=== PATIENT | male | born 1950 | race Two or more races ===

== ENCOUNTER 2018-11-22 03:35 | Emergency (ER) | payer OTHER, MEDICAID ==
[~2018-11-22] VITALS: Ht 162.6 cm; Wt 79.4 kg
[2018-11-22 04:06] LABS: Basophils # (auto) 0.1 uL; Basophils % (auto) 0.6 % (0.0-2.0); Eosinophils # (auto) 0.1 uL; Eosinophils % (auto) 1.1 % (0.0-7.0); Hematocrit 45.3 % (41.0-53.0); Hemoglobin 15.4 g/dL (13.5-17.5); Lymphocytes # (auto) 1.1 uL; Mean Corpuscular Hemoglobin 30.6 pg (28.0-32.0); Mean Corpuscular Hgb Conc. 34.1 g/dL (32.0-36.0); Mean Corpuscular Volume 89.8 fL (80.0-100.0); Monocytes # (auto) 1.2 uL; Neutrophils # (auto) 8.8 uL; Neutrophils % (auto) 77.3 % (37.0-80.0); Nucleated Red Blood Cells % 0.1 %; Platelet Count (auto) 238 10^3/uL (140-450); Red Blood Cells 5.04 10^6/uL (4.5-5.90); White Blood Cell 11.3 10^3/uL (4.4-10.8)
[2018-11-22 04:24] LABS: Anion Gap 9 (5-15); Blood Urea Nitrogen 28 mg/dL (7-18); Carbon Dioxide 29 mmol/L (21-32); Chloride 101 mmol/L (98-107); Glucose 144 mg/dL (74-106); INR 1.03 (0.9-1.15); Partial Thromboplastin Time 24.8 sec (23.64-32.05); Potassium 3.9 mmol/L (3.5-5.1); Sodium 139 mmol/L (136-145)
[2018-11-22 04:31] LABS: Alanine Aminotransferase 26 U/L (16-61); Alkaline Phosphatase 108 U/L (45-117); Aspartate Aminotransferase 17 U/L (15-37); Bilirubin, Total 0.6 mg/dL (0.2-1.0); GFR African American 65 mL/min; GFR Non-African American 54 mL/min; Total Protein 7.7 g/dL (6.4-8.2)
[2018-11-22 06:09] VITALS: BP 131/88
[2018-11-22] MEDS: KETOROLAC TROMETH 15 mg/ml 1ML VL IV ONE (07:52)
[2018-11-22] MEDS: METOCLOPRAMIDE HCL 5MG/ml INJ 2ml VIAL IV ONE (07:52)
[2018-11-22] MEDS: SODIUM CHLORIDE 0.9% 500 ML IV ONE (07:52)
[2018-11-22] MEDS: SODIUM CHLORIDE 0.9% 1,000 ML IV ONE (07:52)
== END 2018-11-22 08:08 | disposition left against medical advice (07) ==
LOC: ER 03:37
DX: R07.89 Other chest pain (principal); C79.51 Secondary malignant neoplasm of bone; C78.5 Secondary malignant neoplasm of large intestine and rectum; E11.21 Type 2 diabetes mellitus with diabetic nephropathy; I25.2 Old myocardial infarction; I10 Essential (primary) hypertension
CPT/HCPCS: 36415; 71045; 80053; 82962; 83880; 84484; 85025; 85610; 85730; 93005; 96374; 96375; 99284; J1885; J2765

== ENCOUNTER 2020-03-13 01:58 | Inpatient (IN) | payer OTHER, MEDICAID ==
[~2020-03-13] VITALS: Ht 160 cm; Wt 73.0 kg
[2020-03-13 02:47] LABS: Basophils # (auto) 0 10 ^3/uL (0-0.2); Basophils % (auto) 0.3 % (0.0-2.0); Eosinophils # (auto) 0 10 ^3/uL (0-0.8); Eosinophils % (auto) 0.1 % (0.0-7.0); Hematocrit 38.8 % (41.0-53.0); Hemoglobin 12.9 g/dL (13.5-17.5); Lymphocytes # (auto) 0.2 10 ^3/uL (0.4-5.4); Lymphocytes % (auto) 3.9 % (10.0-50.0); Mean Corpuscular Hemoglobin 28.6 pg (28.0-32.0); Mean Corpuscular Hgb Conc. 33.3 g/dL (32.0-36.0); Monocytes # (auto) 0.4 10 ^3/uL (0-1.3); Monocytes % (auto) 6.6 % (0.0-12.0); Neutrophils # (auto) 5.4 10 ^3/uL (1.6-8.6); Neutrophils % (auto) 89.1 % (37.0-80.0); Platelet Count (auto) 181 10^3/uL (140-450); Red Blood Cells 4.52 10^6/uL (4.5-5.90); Red Cell Distribution Width 13.9 % (11.8-14.3)
[2020-03-13 03:11] LABS: INR 1.08 (0.9-1.15); Partial Thromboplastin Time 26.8 sec (23.0-31.2)
[2020-03-13 03:13] LABS: Albumin 3.5 g/dL (3.4-5.0); Anion Gap 8 (5-15); Blood Urea Nitrogen 12 mg/dL (7-18); Calcium 8.6 mg/dL (8.5-10.1); Carbon Dioxide 24 mmol/L (21-32); Chloride 104 mmol/L (98-107); Glucose 142 mg/dL (74-106); Magnesium 1.8 mg/dL (1.6-2.6); Potassium 3.8 mmol/L (3.5-5.1); Sodium 136 mmol/L (136-145)
[2020-03-13 03:18] LABS: Alanine Aminotransferase 11 U/L (16-61); Alkaline Phosphatase 124 U/L (45-117); Aspartate Aminotransferase 12 U/L (15-37); BUN/Creatinine Ratio 14.5; Bilirubin, Total 0.8 mg/dL (0.2-1.0); GFR African American 118 mL/min; GFR Non-African American 98 mL/min; Total Protein 6.8 g/dL (6.4-8.2)
[2020-03-13] MEDS ORDERED: IOHEXOL 350 MG/ML 100ML IJ ONE (03:30)
[2020-03-13 05:10] LABS: Lactic Acid w/Reflex 2.4 mmol/L (0.4-2.0)
[2020-03-13 05:39] LABS: Urine Bacteria FEW /hpf (None Seen); Urine Blood Negative /uL (Negative); Urine Specific Gravity > 1.050 (1.001-1.035); Urine WBC <1 /hpf (0 - 3)
[2020-03-13] MEDS ORDERED: ONDANSETRON HCL 4 MG/2 ML VIAL IV ONE (05:45)
[2020-03-13] MEDS ORDERED: VANCOMYCIN 1GM/250ML 250 ML IV ONE (05:45)
[2020-03-13] MEDS ORDERED: HYDROmorphone HCL 2 MG/ML VL IV ONE (05:45)
[2020-03-13] MEDS ORDERED: SODIUM CHLORIDE 0.9% 1,000 ML IV ONE (05:45)
[2020-03-13] MEDS ORDERED: PIPERACILLIN-TAZOB 3.375GM 100 ML IV ONE (05:45)
[2020-03-13 05:56] LABS: Alcohol, Urine < 3.0 mg/dL (0-10); Amphetamine Screen, Urine POSITIVE (NEGATIVE); Barbiturate Scree,Urine NEGATIVE (NEGATIVE); Benzodiazephine Screen, Urine NEGATIVE (NEGATIVE); Cannabinoid Screen, Urine NEGATIVE (NEGATIVE); Cocaine Screen, Urine NEGATIVE (NEGATIVE); Opiate Scree,Urine NEGATIVE (NEGATIVE); Phencyclidine Screen, Urine NEGATIVE (NEGATIVE)
[2020-03-13] MEDS ORDERED: NITROGLYCERIN 0.4 MG SL TAB SL PRN (09:45)
[2020-03-13] MEDS ORDERED: MORPHINE SULF INJ 2 MG/ML SYRINGE 1ML IV PRN (09:45)
[2020-03-13] MEDS ORDERED: PROMETHAZINE HCL 25 MG/ML 1ML IV PRN (10:00)
[2020-03-13] MEDS ORDERED: TEMAZEPAM 15 MG CAP PO PRN (10:00)
[2020-03-13] MEDS ORDERED: ACETAMINOPHEN 500 MG TAB PO PRN (10:00)
[2020-03-13] MEDS ORDERED: LACTULOSE 20Gm/30ML SOLN PO PRN (10:00)
[2020-03-13] MEDS ORDERED: CARVEDILOL 3.125 MG TAB PO SCH (10:00)
[2020-03-13] MEDS ORDERED: traMADol HCL 50 MG TAB PO PRN (10:00)
[2020-03-13] MEDS ORDERED: PRE5T PO (11:10)
[2020-03-13] MEDS ORDERED: MET50T PO (11:10)
[2020-03-13] MEDS ORDERED: ABIR250T PO (11:10)
[2020-03-13] MEDS: ASPirin 81 mg TAB PO SCH (11:46)
[2020-03-13] MEDS: ENALAPRIL MALEATE 2.5 MG TAB PO SCH (11:47)
[2020-03-13] MEDS: METOPROLOL SUCCINATE XL 50 MG TAB PO SCH (11:47)
[2020-03-13] MEDS: CLOPIDOGREL BISULFATE 75 MG TAB PO SCH (11:47)
[2020-03-13] MEDS: ENOXAPARIN SOD 40 MG/0.4 ML SYRINGE SC SCH (11:48)
[2020-03-13 12:57] LABS: Cholesterol 137 mg/dL (< 200); HDL Cholesterol 57 mg/dL (40-59); LDL Cholesterol 71 mg/dL (< 100); Triglycerides 112 mg/dL (< 150)
[2020-03-13 15:53] VITALS: BP 124/74
[2020-03-13] MEDS ORDERED: METF-370 PO (16:31)
[2020-03-13] MEDS ORDERED: TAMS0.4C36 PO (16:31)
[2020-03-13 17:00] VITALS: BP 124/74
[2020-03-13] MEDS: MORPHINE SULF INJ 2 MG/ML SYRINGE 1ML IV PRN (17:06)
[2020-03-13 22:00] VITALS: BP 130/75
[2020-03-14] MEDS: MORPHINE SULF INJ 2 MG/ML SYRINGE 1ML IV PRN ×2 (01:02→06:15)
[2020-03-14 05:00] VITALS: BP 149/85
[2020-03-14 08:31] LABS: Cholesterol 123 mg/dL (< 200); HDL Cholesterol 51 mg/dL (40-59); LDL Cholesterol 63 mg/dL (< 100); Triglycerides 137 mg/dL (< 150)
[2020-03-14 08:51] VITALS: BP 151/91
[2020-03-14] MEDS: CLOPIDOGREL BISULFATE 75 MG TAB PO SCH (09:56)
[2020-03-14] MEDS: METOPROLOL SUCCINATE XL 50 MG TAB PO SCH (09:56)
[2020-03-14] MEDS: ASPirin 81 mg TAB PO SCH (09:56)
[2020-03-14] MEDS: ENALAPRIL MALEATE 2.5 MG TAB PO SCH (09:57)
[2020-03-14] MEDS: ENOXAPARIN SOD 40 MG/0.4 ML SYRINGE SC SCH (09:57)
[2020-03-14] MEDS ORDERED: TAMSULOSIN HYDROCHLORIDE 0.4 MG CAP PO ONE (10:00)
[2020-03-15] MEDS ORDERED: TAMSULOSIN HYDROCHLORIDE 0.4 MG CAP PO SCH (18:00)
== END 2020-03-14 11:33 | disposition left against medical advice (07) | DRG 309 ==
LOC: EDBD 01:58 → ER 02:01 → TELE 02:02 → TELE-WESTW 15:52
PROVIDERS: ADMIT Internal Medicine; ATTEND Internal Medicine
DX: R00.2 Palpitations (principal); C79.51 Secondary malignant neoplasm of bone; I49.3 Ventricular premature depolarization; C61 Malignant neoplasm of prostate; E11.9 Type 2 diabetes mellitus without complications; E78.5 Hyperlipidemia, unspecified; I10 Essential (primary) hypertension; I25.10 Atherosclerotic heart disease of native coronary artery without angina pectoris; F19.10 Other psychoactive substance abuse, uncomplicated; Z53.29 Procedure and treatment not carried out because of patient's decision for other reasons; F15.90 Other stimulant use, unspecified, uncomplicated; K52.9 Noninfective gastroenteritis and colitis, unspecified; Z79.84 Long term (current) use of oral hypoglycemic drugs; Z85.048 Personal history of other malignant neoplasm of rectum, rectosigmoid junction, and anus; I25.2 Old myocardial infarction; Z85.46 Personal history of malignant neoplasm of prostate; Z86.73 Personal history of transient ischemic attack (TIA), and cerebral infarction without residual deficits; Z95.5 Presence of coronary angioplasty implant and graft; Z90.49 Acquired absence of other specified parts of digestive tract
CPT/HCPCS: 36415; 70450; 71275; 74176; 80053; 80061; 80307; 80320; 81001; 82550; 83605; 83735; 83880; 84443; 84484; 85025; 85379; 85610; 85652; 85730; 86141; 87040; 87086; 93005; 93886; 96365; 96368; 96375; G0378; J2405; J2543